=== PATIENT | female | born 1970 | race Caucasian/White ===

== ENCOUNTER 2016-11-01 12:51 | Emergency (ER) | payer MEDICAID ==
--- NOTE | ~2016-11-01 | CT4 ---
[facility] A Service of [facility] RADIOLOGY TEXT RESULTS PATIENT: BOY BARBER LOCATION: [facility] : 70 UNIT #: [id number] AGE: [address]: Elmer Callahan MD SEX: F ORDER DR: [id number] [facility] [address] [place], [place] [address] [id number] MR#: [id number] Acc #: [id number] NAME: BOY BARBER. : 1970 SEX: F STUDY DATE/TIME: 11/01/2016 13:38 UNIT: TOMAS ROOM: STUDY DESCRIPTION: CT Abd and Pelv Wo Cont Attending Physician: Elmer Callahan M.D. Ordering Physician: Elmer Callahan M.D. Primary Care Physician: Kody Agarwal M.D. MEDICAL IMAGING REPORT This report is preliminary unless electronic signature is present EXAM CT abdomen and pelvis without contrast. INDICATION Generalized abdominal pain for the past [address] of the abdomen and pelvis. This CT exam was performed with one or more of the following radiation dose reduction techniques: automatic exposure control, adjustment of mA and/or kV according to patient size, and iterative reconstruction. COMPARISON 06/01/2015 FINDINGS ABDOMEN WITHOUT CONTRAST: Included lung bases are clear. Previous cholecystectomy. Small amount of pneumobilia. The liver, spleen, kidneys, adrenal glands, pancreas have an unremarkable unenhanced appearance. Moderate colonic stool burden. Postsurgical appearance in the descending colon. There is a small area of soft tissue thickening and mild stranding in the umbilical region. This area is mostly intraperitoneal but also involves the abdominal wall. It measures approximately 2.5 cm. It is not clear whether this represents a small hernia. There is some stranding in the surrounding fat and in the adjacent intraperitoneal fat. PELVIS WITHOUT CONTRAST: No pelvic mass or fluid. No aggressive appearing bone lesion. IMPRESSION [facility] A Service of [facility] RADIOLOGY TEXT RESULTS PATIENT: BOY BARBER LOCATION: [facility] : 70 UNIT #: [id number] AGE: [address]: Elmer Callahan MD SEX: F ORDER DR: 1. Area of thickening in the umbilical region detailed above. It is not clear whether this represents a small hernia or some other type of local inflammation. There is mild stranding in the adjacent subcutaneous and intraperitoneal fat. Correlate with the location of the patient's pain. 2. No evidence for obstruction or intraabdominal fluid collection. Moderate colonic stool burden. Dictated by... Marvin Thomas M.D. THIS IS AN ELECTRONICALLY VERIFIED REPORT Marvin Thomas M.D. at 11/02/2016 7:11 AM MORE/sirena TD: 11/01/2016 16:16 JOB #: [id number] MEDICAL IMAGING REPORT Page 1 of 1 COPY
[2016-11-01 11:51] LABS: URINE SOURCE CLEAN CATCH
[2016-11-01 12:06] LABS: URINE APPEARANCE CLOUDY; URINE BILIRUBIN NEG (NEG); URINE BLOOD TRACE (NEG); URINE COLOR YELLOW; URINE GLUCOSE NEG (NEG); URINE KETONE TRACE (NEG); URINE LEUKOCYTE ESTERASE 2+ (NEG); URINE NITRATE POS (NEG); URINE PROTEIN NEG (NEG); URINE SPECIFIC GRAVITY 1.018 (1.003-1.035)
[2016-11-01 12:10] LABS: CULTURE INDICATED? YES; URINE BACTERIA AUWI 4+ (NEGATIVE); URINE SQUAMOUS EPITHELIAL CELL MOD /[HPF]
[~2016-11-01 12:51] MED LIST: BACTRIM DS TABL1 TA1 PO; BACTRIM DS TABL1 TAB PO; BENZONATATE PO; CARAFATE PO; CATAPRES-TTS-20.2 MG; CIPRO PO; CLONAZEPAM2 MG PO; CLONIDINE1 EAC1 TD; DICLOFENAC PO; DOLOBID500 MG PO; DOXYCYCLINE HY100 M3 PO; FIORICET PO; FIORICET1 TAB PO; FLEXERIL PO; IBUPROFEN PO; KETOPROFEN PO; KLONOPIN PO; KLONOPIN1 MG PO; KLONOPIN2 MG; KLONOPIN2 MG PO; LAMICTAL PO; LASIX PO; LISINOPRIL PO; LISINOPRIL20 MG PO; LOPRESSOR PO; LORTAB 10/500 T1 TAB PO; LORTAB 5/500 TA1 TA2 PO; LORTAB 7.5-5001 TAB PO; MACROBID 100 M100 MG PO; MACRODANTIN PO; METHADONE PO; MIRALAX17 G2 PO; MUCINEX DM ER1 EACH PO; MYLANTA400 MG PO; NAPROSYN500 MG PO; NAPROXEN PO; NEURONTIN PO; PERCOCET 10/3251 TAB PO; PERCOCET5/325 PO; PHENERGAN PO; PHENERGAN25 MG PO; PHENERGEN RC; PHENOBARB PO; PREVACID PO; PRINIVIL40 MG PO; PROTONIX PO; PROVERA PO; PROZAC PO; PROZAC40 MG PO; PYRIDIUM PO; REGLAN PO; RITE-AID PHARMACY; SENOKOT S1 TA1 PO; SEROQUEL PO; SEROQUEL XR400 M1 PO; SEROQUEL400 MG PO; TAMIFLU75 M1 PO; TEMAZEPAM PO; TOPAMAX PO; TOPAMAX50 MG PO; TYLENOL #3 PO; ULTRAM PO; VIBRAMYCIN100 M1 DOB; VICODIN 5/1 TAB 5/50 PO; VICODIN 5/500 T1 TAB PO; VICODIN PO; VOLTAREN75 MG PO; ZANAFLEX PO; ZESTRIL10 M1 PO; ZITHROMAX PO; ZOCOR20 MG; ZOFRAN PO
[2016-11-01 13:12] LABS: BASOPHIL% 0.5 % (0-2.5); EOSINOPHIL# 0.1 X10e3 (0-0.7); EOSINOPHIL% 0.7 % (0.0-7.0); HEMATOCRIT 42.6 % (35.0-45.0); HEMOGLOBIN 14.1 gm/dL (12.0-16.0); LYMPHOCYTE# 1.7 X10e3 (1.0-3.5); LYMPHOCYTE% 15.8 % (17.0-45.0); MEAN CELL VOLUME 89.2 FL (83-96); MEAN CORPUSCULAR HEMOGLOBIN 29.6 PG (28-34); MEAN CORPUSCULAR HGB CONC 33.2 g/dL (30-36); MEAN PLATELET VOLUME 9.7 FL (6.5-11.5); MONOCYTE# 0.7 X10e3 (0-1.0); MONOCYTE% 6.8 % (3.0-12.0); NEUTROPHIL# 8.3 X10e3 (1.5-7.1); NEUTROPHIL% 76.2 % (40-75); PLATELET COUNT 244 X10e3 (140-420); RED BLOOD COUNT 4.77 X10e (3.90-5.30); RED CELL DISTRIBUTION WIDTH 13.1 % (11.0-15.5); WHITE BLOOD COUNT 10.8 X10e3 (4.0-10.5)
[2016-11-01 13:14] LABS: DIFF IND NO
[2016-11-01 13:34] LABS: ALBUMIN SERUM 4.6 g/dL (3.5-5.0); BILIRUBIN, DIRECT 0.1 mg/dL (0.0-0.2); BILIRUBIN,INDIRECT 0.7 mg/dL (0.0-0.9); BILIRUBIN,TOTAL 0.8 mg/dL (0.2-2.0); CALCIUM SERUM 9.7 mg/dL (8.4-10.2); GLOM FILT RATE Estimated 67.5 mL/min (>60)
== END 2016-11-01 14:35 | disposition home or self-care (01) ==
LOC: CED 12:51
DX: R10.32 Left lower quadrant pain (principal); R11.2 Nausea with vomiting, unspecified; I50.9 Heart failure, unspecified; I25.10 Atherosclerotic heart disease of native coronary artery without angina pectoris; Z90.49 Acquired absence of other specified parts of digestive tract; Z88.5 Allergy status to narcotic agent; Z88.6 Allergy status to analgesic agent; Z88.8 Allergy status to other drugs, medicaments and biological substances
CPT/HCPCS: 36415; 74176; 80048; 80076; 81003; 83690; 84703; 85025; 87086; 87088; 87186; 96361; 96374; 96375; 99284; J1170; J2405

== ENCOUNTER 2016-11-18 14:15 | Emergency (ER) | payer MEDICAID ==
--- NOTE | ~2016-11-18 | CR230 ---
[facility] A Service of [facility] RADIOLOGY TEXT RESULTS PATIENT: BOY BARBER LOCATION: [facility] : 70 UNIT #: [id number] AGE: [address]: Maria Del Rosario Beasley SEX: F ORDER DR: [id number] [facility] [address] [place], [place] [address] [id number] MR#: [id number] Acc #: [id number] NAME: BOY BARBER. : 1970 SEX: F STUDY DATE/TIME: 11/18/2016 13:22 UNIT: [facility] ROOM: STUDY DESCRIPTION: CR Shoulder Min 2 View Rt Attending Physician: Maria Del Rosario Beasley P.A.-C. Ordering Physician: Maria Del Rosario Beasley P.A.-C. Primary Care Physician: Kody Agarwal M.D. MEDICAL IMAGING REPORT This report is preliminary unless electronic signature is present EXAM Right shoulder 3 views 11/18/2016 1322 hours HISTORY 46-year-old woman fell when her dog knocked her off her porch yesterday. Patient complains of shoulder pain with limited range of motion. COMPARISON 03/21/2016. FINDINGS AP views in internal-external rotation and a scapula Y-view demonstrate no definite fracture. The humeral head is somewhat subluxed inferiorly relative to the glenoid and the acromion with increase in the subacromial space compared to 03/21/2016. This is a nonspecific finding and could be due to joint or muscle laxity but could be due to fluid or hemorrhage in the joint. There is no definite fracture seen. The acromioclavicular joint is normal. There is no dislocation. IMPRESSION Inferior subluxation of the humeral head relative to the acromion and the glenoid representing a change from 03/21/2016. There is no definite fractures seen. There is no definite dislocation. This finding could be due to muscle or joint laxity but could indicate underlying joint effusion. Correlate clinically. STAT * RESULT Dictated by... Delores Schwab M.D. [facility] A Service of [facility] RADIOLOGY TEXT RESULTS PATIENT: BOY BARBER LOCATION: [facility] : 70 UNIT #: [id number] AGE: [address]: Maria Del Rosario Beasley SEX: F ORDER DR: THIS IS AN ELECTRONICALLY VERIFIED REPORT Delores Schwab M.D. at 11/18/2016 2:07 PM DISHA/jarocho TD: 11/18/2016 13:43 JOB #: [id number] MEDICAL IMAGING REPORT Page 1 of 1 COPY
== END 2016-11-18 14:19 | disposition home or self-care (01) ==
LOC: CFTX 14:15
DX: S46.011A Strain of muscle(s) and tendon(s) of the rotator cuff of right shoulder, initial encounter (principal); W17.89XA Other fall from one level to another, initial encounter; Y92.009 Unspecified place in unspecified non-institutional (private) residence as the place of occurrence of the external cause
CPT/HCPCS: 73030; 99283

== ENCOUNTER 2017-01-11 13:06 | Observation (INO) | payer MEDICAID ==
--- NOTE | ~2017-01-11 | CT71 ---
[facility] A Service of [facility] RADIOLOGY TEXT RESULTS PATIENT: BOY BARBER LOCATION: [facility] : 70 UNIT #: [id number] AGE: [address]: Shannon Gutierrez MD SEX: F ORDER DR: [id number] [place] [id number] [facility]. [place], [place] [address] [id number] MR#: [id number] Acc #: [id number] NAME: BOY BARBER. : 1970 SEX: F STUDY DATE/TIME: 01/11/2017 16:16 UNIT: [facility] PCU ROOM: [facility] STUDY DESCRIPTION: CT Head Wo Contrast Attending Physician: Shannon Gutierrez M.D. Ordering Physician: Jason Silva D.O. Primary Care Physician: Kody Agarwal M.D. MEDICAL IMAGING REPORT This report is preliminary unless electronic signature is present EXAM CT of the head without contrast, 01/11/17. HISTORY 46-year-old female with headaches for [address] head, 09/09/15. TECHNIQUE Routine unenhanced axial images performed through the brain. This CT exam was performed with one or more of the following radiation dose reduction techniques: automatic exposure control, adjustment of mA and/or kV according to patient size, and iterative reconstruction. FINDINGS No hemorrhage, acute infarction, mass lesion, or abnormal extraaxial fluid collection. No midline shift or focal mass effect. Ventricular system normal in size configuration. No acute bony abnormality. Visualized paranasal sinuses and mastoid air cells are clear. IMPRESSION No acute intracranial abnormality. Dictated by... Gabe Nicholas M.D. THIS IS AN ELECTRONICALLY VERIFIED REPORT Gabe Nicholas M.D. at 01/13/2017 4:40 PM YRN/zayra TD: 01/11/2017 22:42 [facility] A Service of [facility] RADIOLOGY TEXT RESULTS PATIENT: BOY BARBER LOCATION: [facility] : 70 UNIT #: [id number] AGE: [address]: Shannon Gutierrez MD SEX: F ORDER DR: JOB #: [id number] MEDICAL IMAGING REPORT Page 1 of 1 COPY
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
--- NOTE | ~2017-01-11 | DS ---
Unit #: [id number] #: [id number] Patient: BOY BARBER [id number] [address] [address] [id number] I MR#: [id number] NAME: BOY BARBER. ROOM: 226 Age: 46 Sex: F Admission Date: 01/11/2017 : 1970 Discharge Date: 01/14/2017 Attending Physician: Shannon Gutierrez M.D. Primary Care Physician: Kody Agarwal M.D. DISCHARGE SUMMARY DISCHARGE DIAGNOSES 1. Migraine headache, resolved. Status post neurology evaluation. Stable to be discharged. 2. Urinary tract infection. Culture shows Enterobacter aerogenes. Being discharged on Ceftin. Afebrile. No signs of active infection. 3. History of seizure disorder, continue home meds. 4. Bipolar disorder, continue home meds. 5. Hypertension, stable. 6. Obesity. Counseled on the importance of losing weight. DISCHARGE MEDICATIONS 1. Topamax 100 mg b.i.d. 2. PROzac 40 mg at bedtime. 3. SEROquel 800 mg at bedtime. 4. Inderal 20 mg b.i.d. 5. Lortab 7.5/325 one tablet q.6 p.r.n. for pain. 6. Ceftin 250 mg p.o. b.i.d. x7 days. FOLLOWUP Patient is to follow up with primary care physician, Dr. Gutierrez, as an outpatient in 2-3 days and neurology as an outpatient. CONSULTS DURING THIS HOSPITAL STAY Dr. Lomax, neurology. DIAGNOSTIC STUDIES DURING THIS HOSPITAL STAY IMAGING: CT head on admission: No acute intracranial abnormality. HISTORY OF PRESENT HOSPITAL STAY AND ACTIVE PROBLEMS Migraine headache: Status post evaluation per neurology, Dr. Lomax. Continue Inderal. Continue Topamax. Stable to be discharged. Headache is resolved. UTI: Culture as above. Afebrile. Continue Ceftin for seven days. History of seizure disorder: Outpatient followup with the primary neurologist. Bipolar disorder: Continue home meds. Hypertension: Currently stable. Discharge BP 113/59 with heart rate of 68. Obesity: Counseled on importance of losing weight. Unit #: [id number] #: [id number] Patient: BOY BARBER DISCHARGE INSTRUCTIONS 1. Discharge medications as above. 2. Disposition: Going home. 3. Primary care physician followup in 2-3 days and neurology as an outpatient. Dictated by.[place] Bradford/michael TD: 01/15/2017 08:09 JOB #: [id number] DISCHARGE SUMMARY Page 1 of 1 X Evangelist Mcguire MD X DISCHARGE SUMMARY
--- NOTE | ~2017-01-11 | BMI ---
[facility] Nutrition Therapy DATE: 01/13/17 Patient: BOY BARBER Physician: HODA Address: [address] [place] [address] Room/Bed: [address] [place] [address], Zip: [place] [address] Admit Date: 01/11/17 Date of : [birth year] Height: 5 10 Weight: 332 151 HIGH BMI NOTE: DX: 46 Y.O. FEMALE ADMITTED FOR INTRACTABLE HEADACHE ANTHROPOMETRICS: 5'10", WT: 332# (151 KG), BMI: 47.6 DIET: REGULAR RECOMMENDATIONS: 1. RECOMMEND TO CHANGE CURRENT DIET ORDER TO HEART HEALTHY DIET TO PROMOTE GRADUAL WEIGHT LOSS TOWARDS HEALTHY BMI (19.0-25.0) OR +/-10%IBW RD WILL F/U PER PROTOCOL Respectfully, ADELAIDA MILLER MS, RD, LD [facility] and Nutritional Services [facility] cc: client file
[2017-01-11 17:28] LABS: BASOPHIL# 0.1 X10e3 (0-0.3); BASOPHIL% 0.9 % (0-2.5); DIFF IND NO; EOSINOPHIL% 0.1 % (0.0-7.0); HEMATOCRIT 41.5 % (35.0-45.0); HEMOGLOBIN 13.9 gm/dL (12.0-16.0); LYMPHOCYTE# 1.6 X10e3 (1.0-3.5); LYMPHOCYTE% 16.4 % (17.0-45.0); MEAN CELL VOLUME 89.2 FL (83-96); MEAN CORPUSCULAR HEMOGLOBIN 29.8 PG (28-34); MEAN CORPUSCULAR HGB CONC 33.4 g/dL (30-36); MEAN PLATELET VOLUME 9.6 FL (6.5-11.5); MONOCYTE# 0.5 X10e3 (0-1.0); MONOCYTE% 4.9 % (3.0-12.0); NEUTROPHIL# 7.7 X10e3 (1.5-7.1); NEUTROPHIL% 77.7 % (40-75); PLATELET COUNT 254 X10e3 (140-420); RED BLOOD COUNT 4.65 X10e (3.90-5.30); WHITE BLOOD COUNT 9.9 X10e3 (4.0-10.5)
[2017-01-11 17:47] LABS: INR 1.1
[2017-01-11 19:05] LABS: ALBUMIN SERUM 4.7 g/dL (3.5-5.0); BILIRUBIN, DIRECT 0.2 mg/dL (0.0-0.2); BILIRUBIN,INDIRECT 0.6 mg/dL (0.0-0.9); BILIRUBIN,TOTAL 0.8 mg/dL (0.2-2.0); CALCIUM SERUM 9.5 mg/dL (8.4-10.2); GLOM FILT RATE Estimated 67.5 mL/min (>60); POTASSIUM 4.6 mmol/L (3.5-5.1); PROTEIN TOTAL SERUM 7.7 g/dL (6.0-8.3)
[2017-01-11] MEDS ORDERED: PROZAC40 MG PO (19:31)
[2017-01-11] MEDS ORDERED: SEROQUEL PO (19:31)
[2017-01-11] MEDS ORDERED: TOPAMAX50 MG PO (19:32)
[2017-01-11] MEDS ORDERED: NORCO 7.5-3251 EACH PO (19:33)
[2017-01-11 19:41] LABS: URINE SOURCE CLEAN CATCH
[2017-01-11 19:51] LABS: URINE APPEARANCE CLOUDY; URINE BILIRUBIN NEG (NEG); URINE BLOOD TRACE (NEG); URINE COLOR YELLOW; URINE GLUCOSE NEG (NEG); URINE KETONE TRACE (NEG); URINE LEUKOCYTE ESTERASE 2+ (NEG); URINE NITRATE NEG (NEG); URINE PH 6.5 (5-8); URINE PROTEIN NEG (NEG)
[2017-01-11 19:54] LABS: CULTURE INDICATED? YES; URINE BACTERIA AUWI 4+ (NEGATIVE); URINE SQUAMOUS EPITHELIAL CELL OCC /[HPF]; UWBCS1 AUWI 25-50 (0-5)
[2017-01-14] MEDS ORDERED: INDERAL20 MG PO (18:04)
[2017-01-14] MEDS ORDERED: CEFTIN PO (18:04)
== END 2017-01-14 19:15 | disposition home or self-care (01) ==
LOC: CED 13:06 → CEDOF 20:30 → CED 20:30 → C2A 20:30 → CEDOF 22:25 → C3A PCU 22:25 → C2A 01-12 08:12
PROVIDERS: Emergency Medicine
PROC: 05H333Z Insertion of Infusion Device into Right Innominate Vein, Percutaneous Approach (ICD-10-PCS; principal; 2017-01-11)
DX: G43.909 Migraine, unspecified, not intractable, without status migrainosus (principal); N39.0 Urinary tract infection, site not specified; B96.89 Other specified bacterial agents as the cause of diseases classified elsewhere; G40.909 Epilepsy, unspecified, not intractable, without status epilepticus; F31.9 Bipolar disorder, unspecified; I10 Essential (primary) hypertension; E66.01 Morbid (severe) obesity due to excess calories; Z68.42 Body mass index [BMI] 45.0-49.9, adult; Z79.899 Other long term (current) drug therapy; Z98.890 Other specified postprocedural states; Z90.49 Acquired absence of other specified parts of digestive tract; Z88.5 Allergy status to narcotic agent; Z88.8 Allergy status to other drugs, medicaments and biological substances
CPT/HCPCS: 36415; 70450; 80048; 80076; 81003; 85025; 85610; 85730; 87086; 87088; 87186; 96361; 96374; 96375; 96376; 99285; G0378; J0595; J1100; J1170; J1200; J2765